=== PATIENT | male | born 1965 | race Caucasian/White ===

== ENCOUNTER 2023-08-11 19:50 | Inpatient (IN) | payer OTHER, SELFPAY ==
[2023-08-11] VITALS (14 sets, daily range): BP systolic 132–178; BP diastolic 69–124; BMI 27.4
[2023-08-11 13:01] LABS: INR 0.97; PT 12.9 Sec (11.4-14.6)
[2023-08-11 14:42] LABS: % Basophils 0.3 % (0-2); % Eosinophils 0.1 % (0-6); % Immature Granulocytes 0.5 % (0-0.5); % Lymphocytes 8.8 % (20.5-51.1); % Monocytes 4.3 % (1.7-9.3); Absolute Basophils 0.1 10^3/uL (0-0.2); Absolute Immature Granulocytes 0.1 10^3/uL (0-0.05); Absolute Lymphocytes 1.5 10^3/uL (1.2-3.4); Absolute Monocytes 0.7 10^3/uL (0.1-0.6); Absolute Neutrophils 14.4 10^3/uL (1.4-6.5); Hematocrit 49.8 % (39.0-52.0); Hemoglobin 17.7 g/dL (13.0-18.0); Mean Corp Hgb Conc. 35.5 g/dL (33.0-37.0); Mean Corpuscular Hgb 30.1 pg (27.0-31.0); Mean Corpuscular Volume 84.6 fL (80.0-94.0); Mean Platelet Volume 9.3 fL (7.4-10.4); Nucleated Red Blood Cells % 0 % (-); Platelet Count 305 10^3/uL (130-400); Red Blood Cell Count 5.89 10^6/uL (4.70-6.10); Red Cell Dist. Width 12.8 % (11.5-14.5); White Blood Cell Count 16.8 10^3/uL (4.8-10.8)
[2023-08-11 14:54] LABS: ALT (SGPT) 19 U/L (0-50); AST (SGOT) 42 U/L (17-59); Albumin 5.1 g/dl (3.5-5.0); Alkaline Phosphatase 76 U/L (38-126); Blood Urea Nitrogen 7 mg/dl (9-20); Calcium 10.3 mg/dl (8.4-10.2); Carbon Dioxide 23 mmol/L (22-30); Chloride 107 mmol/L (98-107); Glucose 103 mg/dl (70-99); Potassium 5.3 mmol/L (3.5-5.1); Sodium 142 mmol/L (135-145); Total Bilirubin 0.8 mg/dl (0.2-1.3); Total Protein 8.3 g/dl (6.3-8.2); eGFR > 60.00
[2023-08-11 15:06] LABS: Troponin I < 0.012 ng/ml
--- NOTE | 2023-08-11 15:58 | ED.GENMED ---
History of Present Illness
General
Chief Complaint: Chest Pain
Source: patient
Time Seen by Provider: 08/11/23 15:33
Travel History
Have you had any contact with someone who has COVID-19?: No
Do you have any symptoms of coronavirus? Fever > 100 degrees, chills, cough, shortness of breath, sore throat, loss of taste or smell, muscle aches, or headache?: No
History of Present Illness
History of Present Illness:
58-year-old male presents to the emergency room complaining of chest pain. Patient has been having the chest pain for the past 3 days or so. Discomfort seems to come and go. Worse when he is sitting up. Patient denies any pleuritic nature to the
chest pain. No recent travel or hospitalizations. Patient does not have any history of cardiac disease. Patient denies smoking or recreational drug use. He does drink occasionally.
Past History
Past History
ED Past Medical History: HTN, Seizures (Alcohol withdrawal related) and Other (Alcohol abuse)
ED Past Surgical History: Orthopedic
Social History
Tobacco: Non-smoker
Alcohol: Chronic alcoholic
Drug: None
Personal:
Living: with family
Employment: Employed
Family History
Family History: Other (Noncontributory)
Phy Exam
Physical Exam
Physical Exam:
General: Awake, Alert, Oriented X3. No acute distress.
Vitals: Tachycardic
Head: Atraumatic
Eyes: Pupils equal, EOMI
Throat: Airway intact, no exudates
Neck: Trachea midline
Lungs: Clear and equal b/l
Heart: Regular rate, no murmurs
Abd: Soft, Nontender, No pulsatile mass
Neuro: Nonfocal
Skin: Warm, dry, no rash
Extremities: pulses equal b/l, no edema
Scores
Heart Score for Chest Pain Patients
STEMI patient?: No
History: Moderately Suspicious
ECG: Nonspecific Repolarization
Age: >45 - <65 years
Risk Factors: No Risk Factors
Troponin: </= Normal Limit
Heart Score for Chest Pain Patients: 3
Heart Score Risk: 2.5% MACE over next 6 weeks
Course
Orders/Labs/Results
Orders:
Orders
08/11/23 12:07
ECG [Electrocardiogram (*1)] Urgent
Reason for Study: Chest Pain
08/11/23 12:08
EKG- Treatment ONCE
08/11/23 12:12
CR Chest - 2 Views Urgent
Comment:
Reason For Exam: chest pain
08/11/23 12:27
Prothrombin Time Urgent
08/11/23 14:30
Amylase Urgent
Comment: ADD ON
Complete Blood Count/With Diff Urgent
Comprehensive Metabolic Panel Urgent
Lipase Urgent
Comment: ADD ON
TSH Reflex To Free T4 Urgent
Comment: ADD ON
Troponin I Urgent
08/11/23 Dinner
Regular
At Your Request: Full Participation
08/11/23 15:51
Diltiazem HCl [Cardizem] 20 mg IV NOW STA
08/11/23 15:59
Add On- LAB Urgent
Tests Added?: tsh with refle t4
08/11/23 16:11
CT Chest Pe Study Urgent
Comment:
Reason For Exam: chest pain, tachycardia
08/11/23 16:20
Ketorolac [Toradol] 15 mg IV NOW STA
08/11/23 16:24
D-Dimer Urgent
Troponin I Urgent
08/11/23 19:04
Admit/Transfer Patient As Directed
Co-Sign Provider:
Level of Care: Inpatient admission
Assign to:: Telemetry
Physician / Group: glory
Diagnosis: chest pain
Reason for Telemetry: Chest Pain syndromes
Date to Stop Telemetry: 08/13/23
Time to Stop Telemetry: 11:00
Reason for Hospitalization: chest pain
Expected length of stay greater than two midnights?: Yes
ELOS- Estimated Length of Stay in days: 2
I certify the patient meets the requirements for IP care: Yes
Code Status As Directed
Resuscitation Status: Full Code
08/11/23 21:14
COVID-19 Antigen Urgent
Source: Nasal Swab
08/11/23 21:23
Troponin I Q6H
Heparin 5,000 units SC Q12
Ketorolac [Toradol] 10 mg IV Q6HPRN PRN
08/11/23 21:23
Echo 2D MMode Color/Doppler Routine
Reason for Study: tachycardia, chest pain
CARDIOLOGY CONSULT Routine
Consulting Provider: Darci Zhong
Was physician already notified: Yes
Activity As Directed
Activity Level: As Tolerated
Vital Signs As Directed
Frequency: Per unit guidelines
DX Deep Vein Thrombosis Video Routine
08/12/23 03:23
Troponin I Q6H
08/12/23 06:00
Complete Blood Count/With Diff IN AM
Comprehensive Metabolic Panel IN AM
08/12/23 08:00
Multivitamin [Theragran] 1 tablet PO DAILY
08/12/23 09:23
Troponin I Q6H
08/13/23 11:00
DC Protocol for Telemetry ONCE
Abnormal Lab Results
08/11/23
14:30
WBC 16.8 H 10^3/uL
(4.8-10.8)
Abs Immat Gran (auto) 0.1 H 10^3/uL
(0-0.05)
Absolute Neuts (auto) 14.4 H 10^3/uL
(1.4-6.5)
Absolute Monos (auto) 0.7 H 10^3/uL
(0.1-0.6)
Neutrophils % 86.0 H %
(42.2-75.2)
Lymphocytes % 8.8 L %
(20.5-51.1)
Potassium 5.3 H mmol/L
(3.5-5.1)
BUN 7 L mg/dl
(9-20)
Glucose 103 H mg/dl
(70-99)
Calcium 10.3 H mg/dl
(8.4-10.2)
Total Protein 8.3 H g/dl
(6.3-8.2)
Albumin 5.1 H g/dl
(3.5-5.0)
08/11/23 14:30
08/11/23 14:30
Vital Signs
Initial and Last Documented VS:
Initial Vital Signs
Temp Pulse Resp BP Pulse Ox
98.0 F 66 18 158/106 96
08/11/23 12:10 08/11/23 12:10 08/11/23 12:10 08/11/23 12:10 08/11/23 12:10
Last Documented Vital Signs
Temp Pulse Resp BP Pulse Ox
98.6 F 125 12 172/106 95
08/11/23 17:56 08/11/23 21:36 08/11/23 21:36 08/11/23 21:30 08/11/23 18:15
MDM/Problems Addressed
Differential Diagnosis Includes:
a-flutter, re-entrant atrial tachycardia, sinus tachy, PE, pericarditis, myocarditis
MDM/Problems Addressed:
Patient presents with tachycardia in the 140s while at rest. My initial suspicion was that this represented either a flutter or a atrial tachycardia. Communicated with Dr. De Oliveira who agreed with a dose of Cardizem. Dose of Cardizem was given and
the patient's heart rate slowed from the 140s to the 120s. There were no flutter waves noted. Differential now was basically sinus tachycardia or atrial tachycardia. Labs show an elevated white blood cell count. Given the persistent tachycardia
a CT of the chest to rule PE was obtained. There is no evidence of PE nor any other acute finding. 1 L IV fluid bolus was given also with minimal change in the tachycardia. Troponins are negative x 2. Thyroid study is normal discussed the
patient's presentation again with Dr. Zhong. He recommended hospitalization for observation on the monitor, further troponin measurements and likely echo tomorrow. Dr. Zhong she came into the emergency room to evaluate the patient. Patient
will be admitted to the hospital service.
*Radiology
Radiology exam reviewed: radiology read reviewed
*Pulse Oximetry
Patient hypoxic: no
*EKG
Interpreted by ED Provider?: Yes
Interpretation: abnormal
Heart Rate: 139
Rate: tachycardiac
Rhythm: other (sinus vs atrial vs a flutter)
QRS Pattern: normal QRS
Ischemia: no ischemia
*Health Management Consultant Interpretation
Rate: tachycardiac
Interpretation: abnormal
Rhythm: sinus
*Critical Care Note
Total Time (30-74mins, 75-104mins- exclusive of procedures): 35 min
comment:
Critical care statement: A total of 35 minutes of critical care time was provided for this patient. This includes management of unstable vital signs, evaluation of the patient at bedside, reviewing the patient's pertinent medical records, discussion
with consultants, review of old EKGs and review of pertinent medical records. This time with separate from time utilized to perform the aforementioned documented procedures
Patient Management
Social determinants of health affecting care: Strong social support
Discussion with other providers: Hospitalist and Licensing Worker
ED Attending Note
-
Portions of this chart may have been created with voice recognition software.� Occasional wrong word or��sound alike� substitutions may have occurred due to the inherent limitations of voice recognition software.
Discharge Plan
Departure
Patient Disposition: Admit
Date of Disposition: 08/11/23
Time of Disposition: 18:40
Admit to: Telemetry
Presentation/result/management discussed w/ accepting MD/DO: Hospitalist
Condition: Fair
Discharge Problem:
Chest pain, Atrial tachycardia
Interventions
Interventions:
*Risk Screen - Suicide Last Done: 08/11/23 12:11
*General Assessment Last Done: 08/11/23 12:11
*Neglect/Abuse Screening Last Done: 08/11/23 12:11
ED- Fall Risk Assessment Last Done: 08/11/23 16:00
*ED COVID-19 Vaccine History Last Done: 08/11/23 12:11
ED- Cardiac Assessment Last Done: 08/11/23 16:00
[2023-08-11] MEDS: CARDIZEM 20 MG IV (16:23)
[2023-08-11] MEDS: TORADOL 15 MG IV (16:23)
[2023-08-11 16:50] LABS: D-Dimer 0.44 ug/mlFEU (0.00-0.50)
[2023-08-11 16:59] LABS: Troponin I < 0.012 ng/ml
[2023-08-11 17:13] LABS: TSH Reflex To Free T4 0.59 uIU/ml (0.47-4.68)
--- NOTE | 2023-08-11 19:10 | HPS.HSE ---
Family Physician
-
Family Physician: Cheryl Culver
Chief Complaint
-
chest pain
History of Present Illness
58-year-old male with past medical history of alcohol use disorder, alcohol withdrawal seizure, presenting with chest pain. He has been having chest pain for the past 3 days described as sharp across the chest which comes and goes. Pain does not
radiate to the back or to the arms. He never had pain like this before. He denies any shortness of breath. He denies any pain with breathing. Denies any nausea or vomiting. Denies any abdominal pain. Denies any dizziness or palpitations.
Denies any lower extreme edema. Denies any recent travel or hospitalizations. He denies any history of cardiac disease. Denies smoking or drugs.
Patient has a history of alcohol use disorder but drinks very minimally disease. His last alcoholic drink was around [place] time. Denies any smoking or drugs.
Denies any family history of heart problems.
Medical History
Past Medical History
Past Medical History: Reports Other (alcohol use disorder, alcohol withdrawal seizure)
Past Surgical History: Reports None
Social History
Tobacco: Non-smoker
Alcohol: Former
Drug: None
Family History
Family History: Not pertinent
Allergies / Home Medications
Allergies reflects when Allergies were last updated in [facility].
Home Medications with original date entered in [facility]
Allergy/Medication List:
Allergies
Allergy/AdvReac Type Severity Reaction Status Date / Time
venom-honey bee Allergy Swelling Verified 08/11/23 12:09
Home Medications
multivitamin with folic acid 400 mcg tablet (Tab-A-Barbara) 1 tab PO DAILY Supplement 02/02/20
Review of Systems
-
History Source: Patient
A 12 point ROS was completed and negative except as noted: Yes
Constitutional: Reports No Symptoms
EENT: Reports No Symptoms
Respiratory: Reports No Symptoms
Cardiac: Reports See HPI
Abdomen/GI: Reports No Symptoms
: Reports No Symptoms
Musculoskeletal: Reports No Symptoms
Skin: Reports No Symptoms
Neurological: Reports No Symptoms
Endocrine: Reports No Symptoms
Hematologic/Lymphatic: Reports No Symptoms
Psych: Reports No Symptoms
Physical Exam
Vital Signs
Vital Signs
Temp Pulse Resp BP Pulse Ox
98.6 F 66 18 158/106 96
08/11/23 17:56 08/11/23 12:10 08/11/23 12:10 08/11/23 12:10 08/11/23 12:10
Physical Exam
General: Well Developed, Well Nourished and No Apparent Distress
HEENT: NormoCephalic, Moist mucous membranes and Atraumatic
Respiratory: Clear
Cardiac: S1/S2 and Regular Rhythm; No Murmur or Rub
GI: Soft, Non Tender, Non Distended and Normal Bowel Sounds; No Organomegaly
Rectal: Deferred by Provider
Musculoskeletal: No Clubbing, No Cyanosis and No Edema
Skin: No Rash
Neuro: Nonfocal/grossly intact
Laboratory Results
-
08/11/23 14:30
08/11/23 14:30
Laboratory Results
PT 12.9 Sec (11.4-14.6) 08/11/23 12:27
INR 0.97 08/11/23 12:27
Total Bilirubin 0.8 mg/dl (0.2-1.3) 08/11/23 14:30
AST 42 U/L (17-59) 08/11/23 14:30
ALT 19 U/L (0-50) 08/11/23 14:30
Alkaline Phosphatase 76 U/L (38-126) 08/11/23 14:30
Troponin I < 0.012 ng/ml 08/11/23 16:24
Data Reviewed
-
Lab Data: Labs Reviewed by me
Old Records: Reviewed
Impression/Plan
-
IMPRESSION:
PLAN:
# Chest pain unclear etiology possibly early pericarditis/myocarditis
# Sinus tachycardia
-Troponin negative x 2, continue to trend
-leukocytosis
-Chest x-ray unremarkable
-CT PE without evidence of pulmonary embolism
-EKG shows sinus tachycardia with heart rate up to 140
-Ketorolac, 20 IV diltiazem given
-Continue Toradol
-Check echo
-Cardiology recommending holding further medications until echo tomorrow unless heart rate increases up to 140 again
# Hyperkalemia unclear etiology
-Potassium 5.3
-Continue to monitor
Incidental discovery of few mild compression fractures of the lower thoracic spine
-On CT chest
History of alcohol use disorder
-No longer drinks significant alcohol
History of alcohol withdrawal seizure
Full code
DVT prophylaxis�heparin
Regular diet
--- NOTE | 2023-08-11 19:16 | HPS.HSE ---
Family Physician
-
Family Physician: Cheryl Culver
Chief Complaint
-
chest pain
History of Present Illness
58 male with past medical history of alcohol use disorder, alcohol withdrawal seizure, presenting with chest pain. He has been having chest pain for the past 3 days described as sharp across the chest which comes and goes. Pain does not radiate to
the back or to the arms. He never had pain like this before. He denies any shortness of breath. He denies any pain with breathing. Denies any nausea or vomiting. Denies any abdominal pain. Denies any dizziness or palpitations. Denies any
lower extreme edema. Denies any recent travel or hospitalizations. He denies any history of cardiac disease. Denies smoking or drugs.
Patient has a history of alcohol use disorder but drinks very minimally disease. His last alcoholic drink was around [place] time. Denies any smoking or drugs.
Denies any family history of heart problems.
Medical History
Past Medical History
Past Medical History: Reports Other (alcohol use disorder, alcohol withdrawal seizure)
Past Surgical History: Reports None
Social History
Tobacco: Non-smoker
Alcohol: Former
Drug: None
Family History
Family History: Not pertinent
Allergies / Home Medications
Allergies reflects when Allergies were last updated in [facility].
Home Medications with original date entered in [facility]
Allergy/Medication List:
Allergies
Allergy/AdvReac Type Severity Reaction Status Date / Time
venom-honey bee Allergy Swelling Verified 08/11/23 12:09
Home Medications
multivitamin with folic acid 400 mcg tablet (Tab-A-Barbara) 1 tab PO DAILY Supplement 02/02/20
Review of Systems
-
History Source: Patient
A 12 point ROS was completed and negative except as noted: Yes
Constitutional: Reports No Symptoms
EENT: Reports No Symptoms
Respiratory: Reports No Symptoms
Cardiac: Reports See HPI
Abdomen/GI: Reports No Symptoms
: Reports No Symptoms
Musculoskeletal: Reports No Symptoms
Skin: Reports No Symptoms
Neurological: Reports No Symptoms
Endocrine: Reports No Symptoms
Hematologic/Lymphatic: Reports No Symptoms
Psych: Reports No Symptoms
Physical Exam
Vital Signs
Vital Signs
Temp Pulse Resp BP Pulse Ox
98.6 F 66 18 158/106 96
08/11/23 17:56 08/11/23 12:10 08/11/23 12:10 08/11/23 12:10 08/11/23 12:10
Physical Exam
General: Well Developed, Well Nourished and No Apparent Distress
HEENT: NormoCephalic, Moist mucous membranes and Atraumatic
Respiratory: Clear
Cardiac: S1/S2 and Regular Rhythm; No Murmur or Rub
GI: Soft, Non Tender, Non Distended and Normal Bowel Sounds; No Organomegaly
Rectal: Deferred by Provider
Musculoskeletal: No Clubbing, No Cyanosis and No Edema
Skin: No Rash
Neuro: Nonfocal/grossly intact
Laboratory Results
-
08/11/23 14:30
08/11/23 14:30
Laboratory Results
PT 12.9 Sec (11.4-14.6) 08/11/23 12:27
INR 0.97 08/11/23 12:27
Total Bilirubin 0.8 mg/dl (0.2-1.3) 08/11/23 14:30
AST 42 U/L (17-59) 08/11/23 14:30
ALT 19 U/L (0-50) 08/11/23 14:30
Alkaline Phosphatase 76 U/L (38-126) 08/11/23 14:30
Troponin I < 0.012 ng/ml 08/11/23 16:24
Data Reviewed
-
Lab Data: Labs Reviewed by me
Old Records: Reviewed
Impression/Plan
-
IMPRESSION:
PLAN:
# Chest pain unclear etiology possibly early pericarditis/myocarditis
# Sinus tachycardia
-Troponin negative x 2, continue to trend
-Chest x-ray unremarkable
-CT PE without evidence of pulmonary embolism
-EKG shows sinus tachycardia with heart rate up to 140
-Ketorolac, 20 IV diltiazem given
-Continue Toradol
-Check echo
-Cardiology recommending holding further medications until echo tomorrow unless heart rate increases up to 140 again
# Hyperkalemia unclear etiology
-Potassium 5.3
-Continue to monitor
Incidental discovery of few mild compression fractures of the lower thoracic spine
-On CT chest
History of alcohol use disorder
-No longer drinks significant alcohol
History of alcohol withdrawal seizure
Full code
DVT prophylaxis�heparin
Regular diet
--- NOTE | 2023-08-11 20:08 | CON.CAR ---
Consultation
Consultation Request
Date/Time Consultation Requested: 08/11/2023
Date/Time Consultation Performed: 08/11/2023
Requesting Provider: Hospitalist
Performing Provider: Dr. Zhong
Reason for Consultation: Tachycardia chest discomfort
Medical History
-
History of Present Illness:
4oyear-old male with past medical history below who presented with chest discomfort. Intermittent episodes over the course of 3 days on presentation was noted to have heart rate of 140. ECG with sinus tachycardia patient given Cardizem with heart
rates decreased to the 120s but still tachycardic. No shortness of breath respiratory symptoms fever GI symptoms. Chest CTT performed in the ER is negative for PE. Small hiatal hernia and compression fracture of unclear age. Despite chest
discomfort troponins negative to this point
Review of systems otherwise unremarkable. Denies history of hypertension hypercholesterolemia diabetes
Past medical history
Alcohol abuse
Previous history of alcohol withdrawal seizure
Social history non-smoker
Family history negative for premature CADECG #1 sinus tachycardia heart rate 139 cannot exclude prior IMI CT scan of the chest 08/11/2023 no evidence of pulmonary embolism no acute disease in the chest few mild compression fractures of the lower
thoracic spine indeterminate age small hiatal hernia
troponin less than 0.012 both at 1430 and 1630
Echocardiogram 2008 normal left ventricular function mild mitral regurgitation
Allergies / Home Medications
Allergy/AdvReac Type Severity Reaction Status Date / Time
venom-honey bee Allergy Swelling Verified 08/11/23 12:09
Medication Instructions Recorded Confirmed Type
multivitamin with folic acid 400 1 tab PO DAILY Supplement 02/02/20 08/11/23 History
mcg tablet (Tab-A-Barbara)
Review of Systems
-
All other systems: Negative unless noted
Physical Exam
Vital Signs
Temp Pulse Resp BP Pulse Ox
98.6 F 66 18 158/106 96
08/11/23 17:56 08/11/23 12:10 08/11/23 12:10 08/11/23 12:10 08/11/23 12:10
Lab Results
08/11/23 14:30
08/11/23 14:30
Troponin I < 0.012 ng/ml 08/11/23 16:24
Physical Exam
General: No Apparent Distress
HEENT: Normocephalic, Moist Mucous Membranes and Atraumatic
Respiratory: Clear and Other (No wheezes rales or rhonchi)
Cardiac: Regular Rhythm and Other (Tachycardic no murmur rub or gallop)
GI: Soft, Non Distended, Normal Bowel Sounds and Other (No masses no hepatosplenomegaly)
Musculoskeletal: No Clubbing, No Cyanosis and No Edema
Skin: Warm, Dry and Other (No rash)
Neuro: Awake and Alert
Hematologic/Lymphatic: No Lymphadenopathy
Impression / Plan
-
Chest discomfort-etiology unclear. Intermittent episodes for the last 3 days with prolonged episode today. Despite symptoms he was still able to work out on Wednesday and Wednesday despite hours of symptoms today troponins have been negative which would
make it less likely to be related to coronary ischemia. Would consider both cardiac and noncardiac causes. Of note chest CT was negative for pulmonary embolism. Small hiatal hernia was noted. Patient does intermittently take Tums at home.
-Monitor on telemetry
-Serial troponins
-Protonix
-Check lipase
.
Tachycardia. Tachycardia. Appears to be sinus tachycardia. Possibility of atrial tachycardia cannot entirely be excluded. Would evaluate for causes of tachycardia. Patient seems to intermittently use a blood pressure cuff at home and says his
heart rates usually around 100. Denies recent alcohol or recreational drug use. Talk screen negative. Patient is noted to have leukocytosis.
-Monitor on telemetry
-Can consider addition of beta-bear for additional blood pressure and heart rate control
-Continue to assess for causes of tachycardia and causes of leukocytosis including potential infection. Evaluation directed by hospitalist
.
Leukocytosis-exact etiology unclear. Currently afebrile
-Check COVID test
-Additional assessment as directed by the hospitalist.
.
Elevated blood pressure. Patient reports that he periodically takes his blood pressure at home to be this weekend and systolics were in the 130s and 140s. Higher today. Continued evaluation.
Data Reviewed
-
EKG: Tracing Personally Visualized and interpreted and Report Reviewed by me
Radiology: Report Reviewed by me
CT Scan: Report Reviewed by me
Medical Tests (Nuc Med, Echo etc): Report Reviewed by me
Labs: Labs Reviewed by me
[2023-08-11] MEDS: PROTONIX 40 MG PO (21:22)
[2023-08-11] MEDS: LOPRESSOR 25 MG PO (21:24)
[2023-08-11 21:39] LABS: Amylase 92 U/L (30-110); Lipase 163 U/L (23-300)
[2023-08-11 21:48] LABS: COVID-19 Antigen Negative (Negative)
[2023-08-11 21:57] LABS: Troponin I < 0.012 ng/ml
[2023-08-11] MEDS: HEPARIN 5000 UNITS SC (23:37)
[2023-08-11] MEDS: TORADOL 10 MG IV (23:47)
--- NOTE | 2023-08-11 23:50 | TRANSFER ---
Pt admitted from ED to room 419-1. [id number]. Pt was able to walk from stretcher to bed with no assistance, oriented to the room, call mccloud placed within reach.
[2023-08-12 03:17] LABS: % Basophils 0.3 % (0-2); % Eosinophils 0.6 % (0-6); % Immature Granulocytes 0.3 % (0-0.5); % Lymphocytes 19.8 % (20.5-51.1); % Monocytes 10.8 % (1.7-9.3); % Neutrophils 68.2 % (42.2-75.2); Absolute Eosinophils 0.1 10^3/uL (0-0.7); Absolute Lymphocytes 2.1 10^3/uL (1.2-3.4); Absolute Monocytes 1.1 10^3/uL (0.1-0.6); Absolute Neutrophils 7.2 10^3/uL (1.4-6.5); Hematocrit 39.9 % (39.0-52.0); Hemoglobin 14.2 g/dL (13.0-18.0); Mean Corp Hgb Conc. 35.6 g/dL (33.0-37.0); Mean Corpuscular Volume 84.2 fL (80.0-94.0); Mean Platelet Volume 9.6 fL (7.4-10.4); Nucleated Red Blood Cells % 0 % (-); Platelet Count 217 10^3/uL (130-400); Red Blood Cell Count 4.74 10^6/uL (4.70-6.10); Red Cell Dist. Width 12.7 % (11.5-14.5); White Blood Cell Count 10.6 10^3/uL (4.8-10.8)
[2023-08-12 03:25] VITALS: BP 156/86
[2023-08-12 03:38] LABS: Troponin I < 0.012 ng/ml
[2023-08-12 03:41] LABS: ALT (SGPT) 14 U/L (0-50); AST (SGOT) 29 U/L (17-59); Albumin 3.7 g/dl (3.5-5.0); Alkaline Phosphatase 56 U/L (38-126); Blood Urea Nitrogen 12 mg/dl (9-20); Calcium 8.8 mg/dl (8.4-10.2); Carbon Dioxide 28 mmol/L (22-30); Chloride 105 mmol/L (98-107); Estimated Creatinine Clearance 82 ml/min; Glucose 100 mg/dl (70-99); Potassium 3.8 mmol/L (3.5-5.1); Sodium 136 mmol/L (135-145); Total Protein 6.1 g/dl (6.3-8.2); eGFR > 60.00
[2023-08-12 07:30] VITALS: BP 163/96
[2023-08-12] MEDS: TORADOL 10 MG IV (07:52)
[2023-08-12] MEDS: HEPARIN 5000 UNITS SC ×2 (07:53→19:43)
[2023-08-12] MEDS: PROTONIX 40 MG PO (07:54)
[2023-08-12] MEDS: THERAGRAN 1 TABLET PO (07:54)
[2023-08-12] MEDS: LOPRESSOR 25 MG PO ×2 (07:54→19:42)
--- NOTE | 2023-08-12 08:37 | W.PN.CD ---
Today's Communication / Plan
-
Echo
Continue PPI
follow up ECG abnd troponin
continued observation
-
Impression / Plan
-
Chest discomfort-etiology unclear. Intermittent episodes for the last 3 days with prolonged episode today. Despite symptoms he was still able to work out on Wednesday and Wednesday despite hours of symptoms today troponins have been negative which would
make it less likely to be related to coronary ischemia. Would consider both cardiac and noncardiac causes. Of note chest CT was negative for pulmonary embolism. Small hiatal hernia was noted. Patient does intermittently take Tums at home.
- discomfort was not present ion morning 08/12/22 but then recurred
- Patient has received addtional Toradol.
- can use PRN Tylenol and Ibuprofen in[place]
-Monitor on telemetry
-echo
-Protonix
-Continued observation
.
Tachycardia. Tachycardia. Appeared to be sinus tachycardia. Possibility of atrial tachycardia cannot entirely be excluded. Would evaluate for causes of tachycardia. Patient seems to intermittently use a blood pressure cuff at home and says his
heart rates usually around 100. Denies recent alcohol or recreational drug use. Tox screen negative. Patient is noted to have leukocytosis.
-Monitor on telemetry - now NSR 90s
-Continue BB beta-bear for additional blood pressure and heart rate control
-Continue to assess for causes of tachycardia
.
Leukocytosis-exact etiology unclear.
- Resolved
- Currently afebrile
- COVID test - negative
.
Elevated blood pressure. improved
Physical Exam
Vital Signs/Labs
Vital Signs
Temp Pulse Resp BP Pulse Ox
98.0 F 86 18 156/86 98
08/12/23 03:25 08/12/23 03:25 08/12/23 03:25 08/12/23 03:25 08/12/23 03:25
08/11/23 08/12/23 08/13/23
06:59 06:59 06:59
Actual Weight 79.18 kg
08/12/23 03:08
08/12/23 03:08
PT 12.9 Sec (11.4-14.6) 08/11/23 12:27
INR 0.97 08/11/23 12:27
LAB Results
08/11/23 08/11/23 08/11/23
12 14:30 16:24
Troponin I Cancelled < 0.012 < 0.012
08/11/23 08/11/23 08/12/23
21:14 21:23 03:08
Troponin I < 0.012 Cancelled < 0.012
08/12/23 08/12/23
03:23 06:00
Troponin I Cancelled Cancelled
Physical Exam
Constitutional: No acute distress
Cardiovascular: Rhythm & rate is regular
Respiratory: Respiratory effort normal
GI: Soft
Neuro/Psych: Alert
Data Reviewed
-
Date of Service: August 12, 2023
Medical Decision Making: Review of Case with other Provider
Medical Tests (PFT, Pathology etc): Report Reviewed by me
Labs: Labs Reviewed by me
[2023-08-12 11:30] VITALS: BP 137/84; BP 149/86
--- NOTE | 2023-08-12 12:22 | CM ---
Patient seen bedside.
IA completed.
Patient lives with spouse in 2 story home, no steps to enter.
Patient independent prior to admission without assistive devices.
Patient drives and works.
Patient did not have VN or skilled rehab.
patient denies home care needs.
PCP: [facility]
Pharmacy: [facility]
Plan: home no needs anticipated.
--- NOTE | 2023-08-12 12:39 | W.PN.HOSP.TC ---
Today's Communication/Plan
-
likely d/c later today after echo read
Assessment / Plan
Assessment / Plan
Gen: NAD, AAOx3.
Eyes: EOMI, PERRLA, no scleral icterus.
Neck: supple.
CV: RRR, +S1/S2, no m/r/g.
Resp: CTAB, no rales, wheezes, or rhonchi.
Abd: +BS, soft, NT, ND
Skin: No rashes.
Neuro: CN 2-12 intact, non-focal.
Psych: Normal mood and affect.
CTA chest: No evidence of pulmonary embolus. No acute disease of the chest. Few mild compression fractures of the lower thoracic spine. Age indeterminate. Progressed.
Chest pain and sinus tachy:
-unclear etiology possibly early pericarditis/myocarditis
-CTA chest without PE
-Trop NEG x 3
-leukocytosis now resolved, no evidence of infection
-EKG showed sinus tachycardia with heart rate up to 140
-cardiology following
-check echo
-started on BB
Other problems:
Hyperkalemia, resolved
Incidental discovery, on CT chest, of few mild compression fractures of the lower thoracic spine
History of alcohol use disorder: No longer drinks significant alcohol. Note, h/o alcohol withdrawal seizure.
FULL/heparin
Anticipated Discharge: Today
Subjective/Interval History
-
Date of Service: August 12, 2023
Denies CP/SOB.
Objective Data
-
Labs:
Laboratory Results
08/12/23
03:08
WBC 10.6
Hgb 14.2
Hct 39.9
Plt Count 217 D
Sodium 136
Potassium 3.8 D
Chloride 105
Carbon Dioxide 28
BUN 12
Creatinine 0.9
Glucose 100 H
Calcium 8.8 D
Total Bilirubin 1.0
AST 29
ALT 14
Alkaline Phosphatase 56
Vital Signs:
Vital Signs
Temp Pulse Resp BP Pulse Ox
98.2 F 90 16 137/84 96
08/12/23 11:30 08/12/23 11:30 08/12/23 11:30 08/12/23 11:30 08/12/23 11:30
I&O
08/11/23 08/12/23 08/13/23
06:59 06:59 06:59
Intake Total 360 / 360
Balance 360 / 360
[2023-08-12 15:30] VITALS: BP 129/76
[2023-08-12 19:28] VITALS: BP 135/77
[2023-08-12 22:49] VITALS: BP 123/75
--- NOTE | 2023-08-13 06:37 | W.PN.HOSP.TC ---
Addendum entered and electronically signed by Qasim Lundberg MD 08/13/23 13:04:
Patient had a stress echo which was read as normal/low risk as per Dr. De Oliveira. Case discussed with cardiology and the patient is medically cleared for discharge.
Total time spent on d/c = 31 min. This included today's physical exam, progress note, review of laboratory and diagnostic data, preparation of discharge documents and prescriptions, and discussions about the pt's hospital course and discharge plan
with the patient and other medical service representative involved in the patient's care.
Original Note:
Today's Communication/Plan
-
see bold, likely d/c later today
Assessment / Plan
Assessment / Plan
Gen: NAD, AAOx3.
Eyes: EOMI, PERRLA, no scleral icterus.
Neck: supple.
CV: Remains RRR, +S1/S2, no m/r/g.
Resp: Remains CTAB, no rales, wheezes, or rhonchi.
Abd: +BS, soft, NT, ND
Skin: No rashes.
Neuro: Remains CN 2-12 intact, non-focal.
Psych: Normal mood and affect.
CTA chest: No evidence of pulmonary embolus. No acute disease of the chest. Few mild compression fractures of the lower thoracic spine. Age indeterminate. Progressed.
Echo: Normal biventricular size and systolic function without regional wall motion�abnormality.�No significant valvular disease.�No significant change since the prior study of 05/07/2008.
Chest pain and sinus tachy:
-unclear etiology possibly early pericarditis/myocarditis
-CTA chest without PE
-Trop NEG x 3
-leukocytosis now resolved, no evidence of infection
-EKG showed sinus tachycardia with heart rate up to 140
-cardiology following
-Echo unremarkable as above
-started on BB
-possible stress test today
Other problems:
Hyperkalemia, resolved
Incidental discovery, on CT chest, of few mild compression fractures of the lower thoracic spine
History of alcohol use disorder: No longer drinks significant alcohol. Note, h/o alcohol withdrawal seizure.
FULL/heparin
Anticipated Discharge: Today
Subjective/Interval History
-
Date of Service: August 13, 2023
Denies chest pain or shortness of breath.
Objective Data
-
Vital Signs:
Vital Signs
Temp Pulse Resp BP Pulse Ox
98.7 F 81 18 123/75 96
08/12/23 22:49 08/12/23 22:49 08/12/23 22:49 08/12/23 22:49 08/12/23 22:49
I&O
08/11/23 08/12/23 08/13/23
06:59 06:59 06:59
Intake Total 360 / 360 820 / 820
Balance 360 / 360 820 / 820
[2023-08-13 07:30] VITALS: BP 132/85
[2023-08-13] MEDS: LOPRESSOR PO (07:44)
[2023-08-13] MEDS: THERAGRAN PO (07:44)
[2023-08-13] MEDS: PROTONIX PO (07:44)
[2023-08-13] MEDS: HEPARIN 5000 UNITS SC (07:52)
[2023-08-13 08:06] VITALS: BP 132/85
--- NOTE | 2023-08-13 08:50 | W.PN.CD ---
Today's Communication / Plan
-
stress echo today
Impression / Plan
-
Chest discomfort-etiology unclear. Intermittent episodes for the last 3 days with prolonged episode today. Despite symptoms he was still able to work out on Wednesday and Wednesday despite hours of symptoms today troponins have been negative which would
make it less likely to be related to coronary ischemia. Would consider both cardiac and noncardiac causes. Of note chest CT was negative for pulmonary embolism. Small hiatal hernia was noted. Patient does intermittently take Tums at home.
- discomfort was not present ion morning 08/12/22 but then recurred
- Patient has received addtional Toradol.
- can use PRN Tylenol and Ibuprofen in[place]
-Monitor on telemetry
-echo
-Protonix
-stress echo today
.
Tachycardia. Tachycardia. Appeared to be sinus tachycardia. Possibility of atrial tachycardia cannot entirely be excluded. Would evaluate for causes of tachycardia. Patient seems to intermittently use a blood pressure cuff at home and says his
heart rates usually around 100. Denies recent alcohol or recreational drug use. Tox screen negative. Patient is noted to have leukocytosis.
-Monitor on telemetry - now NSR 90s
-Continue BB beta-bear for additional blood pressure and heart rate control
-stable
.
Leukocytosis-exact etiology unclear.
- Resolved
- Currently afebrile
- COVID test - negative
.
Elevated blood pressure. improved
Physical Exam
Vital Signs/Labs
Vital Signs
Temp Pulse Resp BP Pulse Ox
98.0 F 89 18 132/85 96
08/13/23 07:30 08/13/23 07:30 08/13/23 07:30 08/13/23 07:30 08/13/23 07:30
08/12/23 08/13/23 08/14/23
06:59 06:59 06:59
Actual Weight 174 lb 9 oz
08/12/23 03:08
08/12/23 03:08
PT 12.9 Sec (11.4-14.6) 08/11/23 12:27
INR 0.97 08/11/23 12:27
LAB Results
08/11/23 08/11/23 08/11/23
12:27 14:30 16:24
Troponin I Cancelled < 0.012 < 0.012
08/11/23 08/11/23 08/12/23
21:14 21:23 03:08
Troponin I < 0.012 Cancelled < 0.012
08/12/23 08/12/23
03:23 06:00
Troponin I Cancelled Cancelled
Physical Exam
Constitutional: No acute distress
EENT: Anicteric
Cardiovascular: Rhythm & rate is regular
Respiratory: Respiratory effort normal
GI: Soft
Neuro/Psych: AO x 3
Data Reviewed
-
Date of Service: August 13, 2023
EKG: Report Reviewed by me
Echo: Report Reviewed by me
Labs: Labs Reviewed by me
--- NOTE | 2023-08-13 12:07 | CARDSERVDEF ---
Echocardiogram with Definity completed after protocol screening completed. Allergies verified.
Patent IV site: ____Rt FA_
IV site flushed with 0.9% NaCl pre and post administration.
Diluted bolus method utilized to enhance visualization of ventricular zaidi.
Total volume given: ___3_ mL
Patient tolerated all procedures well without complications.
[2023-08-13 12:33] VITALS: BP 160/78
--- NOTE | 2023-08-13 13:07 | W.DCSUMMARY ---
Discharge Summary
Discharge Data
Date of Admission: 08/11/23
Date of Discharge: 08/13/23
-
Pending Results: No
Hospital Course
Primary diagnoses:
Chest pain
Sinus tachycardia
Secondary diagnoses:
Hyperkalemia
Mild compression fractures of the lower thoracic spine
h/o alcohol abuse disorder
Consultants:
Cardiology
Imaging:
CTA chest: No evidence of pulmonary embolus. No acute disease of the chest. Few mild compression fractures of the lower thoracic spine. Age indeterminate. Progressed.
Echo: Normal biventricular size and systolic function without regional wall motion�abnormality.�No significant valvular disease.�No significant change since the prior study of 05/07/2008.
Hospital course: 58-year-old male who presented with chief complaint of chest pain as on an H&P on admission. He had sinus tachycardia on ECG. CT angiogram of the chest was unremarkable as above. He had 3 negative troponins. He had a mild
leukocytosis which was likely a stress reaction that resolved. There is no evidence of infection. Echocardiogram was unremarkable as above. Patient was started on beta-bear and Protonix. On the day of discharge he had a stress echo that was
read as normal/low risk. He was cleared for discharge by cardiology.
Discharge Plan
-
Patient Disposition: Home (Routine Discharge)
Discharge Diagnosis/Procedures: Chest pain and sinus tachycardia
Condition: Good
Diet: Other diet
Additional Diets: Heart healthy
Activity: As tolerated
Driving Restrictions: As prior to admission
Referrals:
Cheryl Culver DO [Family Provider] - in less than 1 week
Prescriptions:
New
pantoprazole 40 mg Tablet,Delayed Release (Dr/Ec)
40 mg PO DAILY Qty: 30 0RF
metoprolol tartrate 25 mg Tablet
25 mg PO BID Qty: 30 0RF
Continued
multivitamin with folic acid [Tab-A-Barbara] 1 TABLET tablet
1 tab PO DAILY
Discharge Orders:
Discharge Patient (As Directed); Ordered 08/13/23
Ordered By: Qasim Lundberg
[2023-08-13] MEDS: FLUZONE QUAD 2023-2024 SYRINGE 0.5 ML IM (13:16)
--- NOTE | 2023-08-13 14:46 | CM ---
CM reviewed chart, patient discharge home no needs. CM will continue to follow for discharge planning needs.
Plan; home no needs.
== END 2023-08-13 13:41 | disposition home or self-care (01) | DRG 313 ==
LOC: 4 WEST ACU 19:50
PROVIDERS: Emergency Medicine; ADMITTING PHYSICIAN Hospitalist; ATTENDING PHYSICIAN Internal Medicine; CONSULT PHYSICIAN Internal Medicine Cardiovascular Disease; EMERGENCY PHYSICIAN Emergency Medicine; FAMILY PHYSICIAN Family Medicine
DX: R07.89 Other chest pain (principal); I47.19 Other supraventricular tachycardia; E87.5 Hyperkalemia; F10.11 Alcohol abuse, in remission; D72.829 Elevated white blood cell count, unspecified; I10 Essential (primary) hypertension
CPT/HCPCS: 93017; 71046; 71275; 80053; 82150; 83690; 84443; 84484; 85025; 85379; 85610; 87811; 90686; 93005; 93306; 93350; 96374; 96375; 99291; G0008; Q9967

== ENCOUNTER 2024-01-07 19:55 | Emergency (ER) | payer OTHER, SELFPAY ==
[2024-01-07 19:59] VITALS: BP 154/103
[2024-01-07 20:37] LABS: % Lymphocytes 35.8 % (20.5-51.1); % Monocytes 6.7 % (1.7-9.3); % Neutrophils 54.5 % (42.2-75.2); Absolute Basophils 0.1 10^3/uL (0-0.2); Absolute Eosinophils 0.1 10^3/uL (0-0.7); Absolute Immature Granulocytes 0.1 10^3/uL (0-0.05); Absolute Lymphocytes 1.8 10^3/uL (1.2-3.4); Absolute Monocytes 0.3 10^3/uL (0.1-0.6); Absolute Neutrophils 2.7 10^3/uL (1.4-6.5); Hematocrit 45.3 % (39.0-52.0); Hemoglobin 16.2 g/dL (13.0-18.0); Mean Corp Hgb Conc. 35.8 g/dL (33.0-37.0); Mean Corpuscular Hgb 30.2 pg (27.0-31.0); Mean Corpuscular Volume 84.5 fL (80.0-94.0); Mean Platelet Volume 9.5 fL (7.4-10.4); Nucleated Red Blood Cells % 0 % (-); Platelet Count 160 10^3/uL (130-400); Red Blood Cell Count 5.36 10^6/uL (4.70-6.10); Red Cell Dist. Width 14.5 % (11.5-14.5)
[2024-01-07 20:50] LABS: ALT (SGPT) 61 U/L (0-50); AST (SGOT) 239 U/L (17-59); Albumin 4.8 g/dl (3.5-5.0); Alkaline Phosphatase 84 U/L (38-126); Blood Urea Nitrogen 9 mg/dl (9-20); Calcium 9.5 mg/dl (8.4-10.2); Carbon Dioxide 31 mmol/L (22-30); Chloride 99 mmol/L (98-107); Glucose 98 mg/dl (70-99); Lipase 325 U/L (23-300); Potassium 4.9 mmol/L (3.5-5.1); Sodium 142 mmol/L (135-145); Total Bilirubin 0.7 mg/dl (0.2-1.3); Total Protein 7.6 g/dl (6.3-8.2); eGFR > 60.00
[2024-01-07 21:01] LABS: Troponin I < 0.012 ng/ml
[2024-01-07 21:02] LABS: Alcohol 358 mg/dl
[2024-01-07 21:23] VITALS: BMI 25.9
[2024-01-07 21:29] VITALS: BP 144/101
--- NOTE | 2024-01-07 21:41 | ED.GENMED ---
History of Present Illness
General
Chief Complaint: Chest Pain
Time Seen by Provider: 01/07/24 21:31
History of Present Illness
History of Present Illness:
HPI: Patient presents with chest discomfort that he feels is related to 'my esophagus'. He was placed on pantoprazole in the past. He says he has had discomfort for the past month or so. His symptoms acutely worsened approximately 6 hours ago.
He also admits to alcohol use 'weekly' ( suspects daily).
EXAM:
GENERAL: Well appearing in no distress; he appears to have the effect of alcohol but does not clinically appear intoxicated to the point that he cannot make his own decision
HEENT: Moist oral mucosa
CARDIOVASCULAR: No murmurs, tachycardic heart rate, regular rhythm, No chest wall tenderness
PULMONARY: No respiratory distress, breath sounds are clear and equal
ABDOMEN: Soft with no peritoneal signs, no tenderness
NEUROLOGIC: Excellent strength all extremities, no coordination deficits
PSYCHIATRIC: Appropriate mental status, normal insight and judgement
EXTREMITIES: Nontender, no edema, moves all extremities equally
SKIN: No rash, no lesions
TIME OF INITIAL ENCOUNTER: 9:45 PM
NUMBER AND COMPLEXITY OF PROBLEMS ADDRESSED AT THE ENCOUNTER
� Chronic conditions affecting care: Headache, seizure, GERD, anxiety/depression, alcohol use
� Acute Exacerbation and/or Progression of Chronic Illness: This is an acute problem
� Differential Diagnosis includes: Alcoholic gastritis, pancreatitis, dehydration, esophagitis, ACS
AMOUNT AND/OR COMPLEXITY OF DATA TO BE REVIEWED AND ANALYZED
� I performed an independent evaluation of and my interpretation is:
EKG: Sinus 120, nonspecific ST abnormality
CT:
X-rays:
Laboratory Studies: Lipase is 325, AST is 239, ALT is 61, bicarb is 31, CBC unremarkable, of note MCV is 84
Other:
� Review of other/old records: The patient was admitted here 5 months ago and had a CTA at that time with no evidence of PE. He had 3 negative troponins at that time and at that time.
� Clinical information was obtained by an independent historian: I spoke to the at bedside
� Prescriptions/Medications Considered but not given:
� Further testing considered but not performed:
RISK OF COMPLICATIONS AND/OR MORBIDITY OR MORTALITY OF PATIENT MANAGEMENT
� Social determinants of health affecting care: Lives at home
� Discussion with other providers:
� Escalation of care including admission/observation vs risk of discharge considered: The patient had 2 troponins here but symptoms started 6 hours prior to arrival. Lipase borderline elevated of doubtful clinical significance.
He did have some episodes of chest discomfort here but repeat EKGs were unchanged/unremarkable. The patient on reassessment still has the discomfort but also tells me this has been going on for months and has been to other doctors with unremarkable
workup. Given associated alcohol use I suspect that degree of gastritis/esophagitis. He is already on PPI. Will add Carafate.
Past History
Past History
ED Past Medical History: HTN, Seizures (Alcohol withdrawal related) and Other (Alcohol abuse)
ED Past Surgical History: Orthopedic
Social History
Tobacco: Non-smoker
Alcohol: Chronic alcoholic
Drug: None
Personal:
Living: with family
Employment: Employed
Family History
Family History: Other (Noncontributory)
Phy Exam
Physical Exam
Physical Exam:
See HPI
Scores
Heart Score for Chest Pain Patients
STEMI patient?: Not applicable
Course
Orders/Labs/Results
Orders:
Orders
01/07/24 19:58
Electrocardiogram (*1) Urgent
Reason for Study: Chest Pain
EKG- Treatment ONCE
01/07/24 20:31
Alcohol Urgent
Complete Blood Count/With Diff Urgent
Comprehensive Metabolic Panel Urgent
Lipase Urgent
Troponin I Urgent
01/07/24 21:40
0.9% Sodium Chloride 1000 ml [Nss] 1,000 ml IV BOLUS
Famotidine [Pepcid] 20 mg IV NOW STA
01/07/24 21:46
Troponin I Urgent
01/07/24 23:10
Sucralfate Suspension [Carafate Suspension] 1 gm .ROUTE .STK-MED ONE
01/07/24 23:12
Sucralfate Suspension [Carafate Suspension] 1 gm PO NOW STA
01/07/24 23:13
Sucralfate Suspension [Carafate Suspension] 1 gm PO NOW STA
Abnormal Lab Results
01/07/24
20:31
Abs Immat Gran (auto) 0.1 H 10^3/uL
(0-0.05)
Immature Gran % 1.0 H %
(0-0.5)
Carbon Dioxide 31 H mmol/L
(22-30)
AST 239 H U/L
(17-59)
ALT 61 H U/L
(0-50)
Lipase 325 H U/L
(23-300)
01/07/24 20:31
01/07/24 20:31
Vital Signs
Initial and Last Documented VS:
Initial Vital Signs
Temp Pulse Resp BP Pulse Ox
99 F 126 18 154/103 95
01/07/24 19:59 01/07/24 19:59 01/07/24 19:59 01/07/24 19:59 01/07/24 19:59
Last Documented Vital Signs
Temp Pulse Resp BP Pulse Ox
99 F 102 25 143/98 97
01/07/24 19:59 01/07/24 22:45 01/07/24 22:45 01/07/24 22:00 01/07/24 22:30
*Critical Care Note
Total Time (30-74mins, 75-104mins- exclusive of procedures): Not Applicable
ED Attending Note
-
Portions of this chart may have been created with voice recognition software.� Occasional wrong word or��sound alike� substitutions may have occurred due to the inherent limitations of voice recognition software.
Discharge Plan
Departure
Patient Disposition: Home (Routine Discharge)
Date of Disposition: 01/07/24
Time of Disposition: 23:12
Patient with high blood pressure during this ER visit?: Yes
Discharge Problem:
Esophagitis
Prescriptions:
New
sucralfate [Carafate] 100 mg/mL suspension
10 ml PO ACHS Qty: 500 0RF
No Action
multivitamin with folic acid [Tab-A-Barbara] 1 TABLET tablet
1 tab PO DAILY
pantoprazole 40 mg Tablet,Delayed Release (Dr/Ec)
40 mg PO DAILY Qty: 30 0RF
metoprolol tartrate 25 mg Tablet
25 mg PO BID Qty: 30 0RF
Referrals:
Karie Camarillo CRNP [Family Provider] -
Interventions
Interventions:
*Risk Screen - Suicide Last Done: 01/07/24 19:59
*General Assessment Last Done: 01/07/24 19:59
*Neglect/Abuse Screening Last Done: 01/07/24 19:59
ED- Fall Risk Assessment Last Done: 01/07/24 21:23
ED- Cardiac Assessment Last Done: 01/07/24 21:23
Discharge Date and Time
Print Language: [id number]
[2024-01-07] MEDS: NSS 1000 IV (21:47)
[2024-01-07 21:48] VITALS: BP 149/100
[2024-01-07] MEDS: PEPCID 20 MG IV (21:52)
[2024-01-07 22:00] VITALS: BP 143/98
[2024-01-07 22:22] LABS: Troponin I < 0.012 ng/ml
[2024-01-07 23:00] VITALS: BP 130/94
[2024-01-07] MEDS: CARAFATE SUSPENSION 1 GM PO (23:12)
== END 2024-01-07 23:39 | disposition home or self-care (01) ==
LOC: EMR 19:55
PROVIDERS: Emergency Medicine; EMERGENCY PHYSICIAN Emergency Medicine; FAMILY PHYSICIAN Nurse Practitioner
DX: K20.90 Esophagitis, unspecified without bleeding (principal); I10 Essential (primary) hypertension
CPT/HCPCS: 99284; 96374; 80053; 82077; 83690; 84484; 85025; 93005